=== PATIENT | female | born 1985 | race Caucasian/White ===

== ENCOUNTER 2021-05-11 16:29 | Emergency (ER) | payer MEDICARE, MEDICAID ==
[~2021-05-11] VITALS: Ht 154.9 cm; Wt 90.7 kg
[~2021-05-11 16:29] MED LIST: HYDROCODONE-AP1 EAC6 PO; JANUVIA 50 MG T50 M1 PO; LISINOPRIL2.5 MG PO; METFORMIN HCL500 MG PO; PROZAC20 MG PO
[2021-05-11] MEDS ORDERED: PROAIR HFA8.5 GM INH (17:37)
[2021-05-11] MEDS ORDERED: CORICIDIN COLD1 EACH PO (17:37)
[2021-05-11] MEDS ORDERED: TESSALON PERLE100 MG PO (17:37)
[2021-05-11 18:04] VITALS: BP 141/70
== END 2021-05-11 18:04 | disposition home or self-care (01) ==
LOC: M.ERS 16:29
DX: J06.9 Acute upper respiratory infection, unspecified (principal); K44.9 Diaphragmatic hernia without obstruction or gangrene; F41.9 Anxiety disorder, unspecified; F32.9 Major depressive disorder, single episode, unspecified; E11.9 Type 2 diabetes mellitus without complications; Z85.841 Personal history of malignant neoplasm of brain; Z79.84 Long term (current) use of oral hypoglycemic drugs; Z79.899 Other long term (current) drug therapy